=== PATIENT | male | born 1965 | race African-American/Black ===

== ENCOUNTER 2018-05-11 01:37 | Emergency (ER) | payer OTHER ==
[~2018-05-11] VITALS: Ht 165.1 cm; Wt 74.4 kg
--- OUTSIDE RECORDS SUMMARY | 2018-05-11 01:41 | XMS REPORT ---
Author Author Hector Valentino Organization [employer] Address Unknown Phone Unavailable Care Team Providers Care Bench Mover Name Role Phone Hector Valentino CP Unavailable Allergies, Adverse Reactions, Alerts Substance Reaction Event Type N.K.D.A. Info Not Available Non Drug Allergy Problems Problem Type Condition Code Onset Dates Condition Status Assessment Microscopic hematuria R31.29 Active Assessment Pneumonia of right lower lobe due to infectious organism J18.1 Active Assessment Right sided abdominal pain R10.9 Active Problem Abnormal CXR R93.89 Active Problem BMI 26.0-26.9,adult Z68.26 Active Problem Pneumonia of right lower lobe due to infectious organism J18.1 Active Assessment Screening for prostate cancer Z12.5 Active Assessment Abnormal CXR R93.89 Active Assessment Routine general medical examination at a health care facility Z00.00 Active Medications Medication Code System Code Instructions Start Date End Date Status Dosage Advil Migraine [facility] [id number] 200 MG Orally Three times a day Active 1 capsule with food or milk as needed Vital Signs Date/Time: Feb 14, 2018 BMI 25.84 Index Weight 165 lbs Height 67 in Cardiac Monitoring Heart Rate 72 /min Blood Pressure Diastolic 70 mm Hg Blood Pressure Systolic 110 mm Hg Results Name Result Date Reference Range Unit Abnormality Flag EKG Chest 2 views- Xray URINE AUTO W/O SCOPE ----Bili neg [id number] ----Glucose neg [id number] ----Urobilinogen 0.2 [id number] ----Ketones neg [id number] ----Spec Boyds 1.010 [id number] ----pH 6.5 [id number] ----Turbidity clear [id number] ----Protein neg [id number] ----Blood trace [id number] ----Leuk Est neg [id number] ----Nitrite neg [id number] ----Color yellow [id number] Summary Purpose [employer] Submission
--- OUTSIDE RECORDS SUMMARY | 2018-05-11 01:41 | XMS REPORT | Continuity of Care Document ---
Author Author [facility] Interface Address Unknown Phone Unavailable Problems Problem Status Onset Date Classification Date Reported Comments Source FEVER Active 01/06/2012 [facility] Microscopic hematuria Active Diagnosis 03/17/2018 [facility] Pneumonia of right lower lobe due to infectious organism Active Diagnosis 03/17/2018 [facility] Right sided abdominal pain Active Diagnosis 03/17/2018 [facility] Abnormal CXR Active Problem 03/17/2018 [facility] BMI 26.0-26.9,adult Active Problem 03/17/2018 [facility] Screening for prostate cancer Active Diagnosis 03/17/2018 [facility] Routine general medical examination at a health care facility Active Diagnosis 03/17/2018 [facility] Medications Medication Details Route Status Patient Instructions Ordering Provider Order Date Source Cipro 500 mg oral tablet 500 mg, 1 tab, PO, Q12H, 20 tab, Substitution Allowed, TAB PO Active [place] 01/07/2012 [facility] ceftriaxone 250 mg, Route: IM, ONCE, Dosing Weight 72.727, kg, Priority: STAT, Start date: 01/07/12 1:31:00, Stop date: 01/07/12 1:31:00 IM No Longer Active [facility] 01/07/2012 [facility] azithromycin 1,000 mg, Route: PO, ONCE, Dosing Weight 72.727, kg, Priority: STAT, Start date: 01/07/12 1:31:00, Stop date: 01/07/12 1:31:00 PO No Longer Active [facility] 01/07/2012 [facility] acetaminophen 1,000 mg, Route: PO, ONCE, Dosing Weight 72.727, kg, Start date: 01/07/12 0:44:00, Stop date: 01/07/12 0:44:00 PO No Longer Active [facility] 01/07/2012 [facility] Advil Migraine 1 capsule with food or milk as needed Orally Active 200 MG Orally Three times a day [place] Allergies, Adverse Reactions, Alerts Substance Category Reaction Severity Reaction type Status Date Reported Comments Source N.K.D.A. Adverse Reaction Info Not Available Adverse Reaction Active 02/14/2018 [facility] Immunizations Immunization Date Given Site Status Last Updated Comments Source Results Order Name Results Value Reference Range Date Interpretation Comments Source Microbiology Culture: Urine 01/07/2012 [facility] IMMUNOLOGY Source [place] urethra 01/07/2012 NA [facility] IMMUNOLOGY Chlam PCR Negative (01/07/2012 01:25:00) Negative 01/07/2012 Normal [facility] IMMUNOLOGY Gonorrhea PCR Negative (01/07/2012 01:25:00) Negative 01/07/2012 Normal [facility] IMMUNOLOGY Source [place] URETHRA 01/07/2012 NA [facility] URINALYSIS UA Bacteria Moderate /HPF *ABN* (01/07/2012 00:45:00) None Seen 01/07/2012 ABN [facility] URINALYSIS UA Color [place] 01/07/2012 NA [facility] URINALYSIS UA Turbidity Clear (01/07/2012 00:45:00) Clear 01/07/2012 Normal [facility] URINALYSIS UA Spec Grav 1.006 <=1.030 01/07/2012 Normal [facility] URINALYSIS UA pH 6.0 5.0 - 8.0 01/07/2012 Normal [facility] URINALYSIS UA Urobilinogen 4.0 mg/dL 0.1 - 1.0 01/07/2012 [facility] URINALYSIS UA Nitrite Positive *ABN* (01/07/2012 00:45:00) Negative 01/07/2012 ABN [facility] URINALYSIS UA RBC 6 /HPF 0 - 2 01/07/2012 [facility] URINALYSIS UA Protein Negative mg/dL (01/07/2012 00:45:00) Negative 01/07/2012 [facility] URINALYSIS UA Glucose Negative mg/dL *NA* (01/07/2012 00:45:00) Negative 01/07/2012 [facility] URINALYSIS UA Leuk Est Large *ABN* (01/07/2012 00:45:00) Negative 01/07/2012 [facility] URINALYSIS UA Sq Epi Occasional /LPF *NA* (01/07/2012 00:45:00) Few 01/07/2012 [facility] URINALYSIS UA WBC null 0 - 5 01/07/2012 [facility] URINALYSIS UA Bili Negative *NA* (01/07/2012 00:45:00) Negative 01/07/2012 NA [facility] URINALYSIS UA Blood Moderate *ABN* (01/07/2012 00:45:00) Negative 01/07/2012 ABN [facility] URINALYSIS UA Ketones Negative mg/dL *NA* (01/07/2012 00:45:00) Negative 01/07/2012 NA [facility] Vital Signs Vital Sign Value Date Comments Source Weight 165 02/14/2018 [facility] Height 67 02/14/2018 [facility] Heart Rate 72 02/14/2018 [facility] Diastolic (mm Hg) 70 02/14/2018 [facility] Systolic (mm Hg) 110 02/14/2018 [facility] Height 165.10 cm 01/07/2012 [facility] Weight 72.727 01/07/2012 [facility] Encounters Location Location Details Encounter Type Encounter Number Reason For Visit Attending Provider ADM Date DC Date Status Source [facility] Emergency [id number] ERNST VERONICAGRANT 01/07/2012 01/07/2012 Active [facility] Procedures Procedure Code Date Perfomer Comments Source
--- OUTSIDE RECORDS SUMMARY | 2018-05-11 01:41 | XMS REPORT | CCD ---
Author Author Auto Generated Organization [facility] Address Unknown Phone Unavailable Care Team Providers Care Parasitology Teacher Name Role Phone Daren Koenig CP Allergies, Adverse Reactions, Alerts Substance Reaction Status NKDA Active Medications Medication Instructions Start Date End Date Status ceftriaxone 250 mg, Route: IM, ONCE, Dosing 01/07/2012 01/07/2012 Completed Weight 72.727, kg, Priority: STAT, Start date: 01/07/12 1:31:00, Stop date: 01/07/12 1:31:00 azithromycin 1,000 mg, Route: PO, ONCE, Dosing 01/07/2012 01/07/2012 Completed Weight 72.727, kg, Priority: STAT, Start date: 01/07/12 1:31:00, Stop date: 01/07/12 1:31:00 Cipro 500 mg oral 500 mg, 1 tab, PO, Q12H, 20 tab, 01/07/2012 01/17/2012 Ordered tablet Substitution Allowed, TAB acetaminophen 1,000 mg, Route: PO, ONCE, Dosing 01/07/2012 01/07/2012 Completed Weight 72.727, kg, Start date: 01/07/12 0:44:00, Stop date: 01/07/12 0:44:00 Vital Signs Most recent to oldest [Reference Range]: 1 Height 165.10 cm (01/07/2012 00:41:00) Weight 72.727 kg (01/07/2012 00:41:00) Results URINALYSIS Most recent to oldest [Reference Range]: 1 UA Turbidity [Clear] Clear (01/07/2012 00:45:00) UA Color [place] *NA* (01/07/2012 00:45:00) UA pH [5.0-8.0] 6.0 (01/07/2012 00:45:00) UA Spec Grav [<=1.030] 1.006 (01/07/2012 00:45:00) UA Glucose [Negative mg/dL] Negative mg/dL *NA* (01/07/2012 00:45:00) UA Blood [Negative] Moderate *ABN* (01/07/2012 00:45:00) UA Ketones [Negative mg/dL] Negative mg/dL *NA* (01/07/2012 00:45:00) UA Protein [Negative mg/dL] Negative mg/dL (01/07/2012 00:45:00) UA Urobilinogen [0.1-1.0 mg/dL] 4.0 mg/dL *HI* (01/07/2012 00:45:00) UA Bili [Negative] Negative *NA* (01/07/2012 00:45:00) UA Leuk Est [Negative] Large *ABN* (01/07/2012 00:45:00) UA Nitrite [Negative] Positive *ABN* (01/07/2012 00:45:00) UA WBC [0-5 /HPF] >182 /HPF *HI* (01/07/2012 00:45:00) UA RBC [0-2 /HPF] 6 /HPF *HI* (01/07/2012 00:45:00) UA Bacteria [None Seen /HPF] Moderate /HPF *ABN* (01/07/2012 00:45:00) UA Sq Epi [Few /LPF] Occasional /LPF *NA* (01/07/2012 00:45:00) IMMUNOLOGY Most recent to oldest [Reference Range]: 1 Source [place] urethra *NA* (01/07/2012 01:25:00) [place] PCR [Negative] Negative (01/07/2012 01:25:00) Source [place] URETHRA *NA* (01/07/2012 01:25:00) Gonorrhea PCR [Negative] Negative (01/07/2012 01:25:00) Microbiology Reports PROCEDURE:Culture: Urine STATUS: In Progress BODY SITE: COLLECTED DATE/TIME: 01/07/2012 01:28:00 SOURCE: Urine, Clean Catch FREE TEXT SOURCE: PRELIMINARY REPORTS Preliminary Report >100,000 CFU/mL Gram Negative Rods, Non-Lactose Fermenters Identification And Sensitivity To Follow Preliminary Report Holding For Better Growth
== END 2018-05-11 02:20 | disposition home or self-care (01) ==
LOC: FSED 01:37
DX: S00.83XA Contusion of other part of head, initial encounter (principal); M54.2 Cervicalgia; S16.1XXA Strain of muscle, fascia and tendon at neck level, initial encounter; V47.5XXA Car driver injured in collision with fixed or stationary object in traffic accident, initial encounter; Y92.481 Parking lot as the place of occurrence of the external cause
CPT/HCPCS: 99282

== ENCOUNTER 2020-09-29 20:55 | Emergency (ER) | payer OTHER ==
[~2020-09-29] VITALS: Ht 167.6 cm; Wt 75.7 kg
[2020-09-29] MEDS ORDERED: PERIDEX473 M1 PO (21:13)
[2020-09-29 21:15] VITALS: BP 130/81
== END 2020-09-29 21:15 | disposition home or self-care (01) ==
LOC: FSED 21:13
DX: K08.89 Other specified disorders of teeth and supporting structures (principal)
CPT/HCPCS: 99282